=== PATIENT | female | born 1950 | race Caucasian/White ===

== ENCOUNTER 2020-01-28 00:37 | Observation (INO) | payer MEDICARE, OTHER, SELFPAY ==
[2020-01-28] VITALS (14 sets, daily range): BP systolic 121–174; BP diastolic 64–87; PULSE 60–90; RESP 16–20; TEMP 36.5–36.9; O2SAT 90–94; BMI 33.0
--- NOTE | 2020-01-28 00:51 | ED_ITS ---
HPI - Dizziness General: Chief Complaint: Dizziness Stated Complaint: r/o stroke Source: patient Mode of arrival: ambulatory Limitations: no limitations History of Present Illness: HPI Narrative: Zehra is a nice 69-year-old female who comes in from [facility]'s emergency department with report of dizziness. All of her notes, labs, CAT scans and findings from there were transferred with her and scanned into this chart so please review those. Patient was felt to have a TIA and they wanted to perform an MRI so she was referred here. Zehra tells me that she woke up at 8 AM with dizziness which she describes as not being able to focus and being severely off balance when she tries to walk. She denies any exacerbation to me when she moves her head in bed although when I asked her to perform it here she said it does exacerbate it mildly but she has persistent dizziness even at rest. The patient states the symptoms have waxed and waned but have been present all day. The last time she know she was okay was at 10 PM when she went to sleep the night before. Patient does not really complain of progressive symptoms but her symptoms are no better and they are present constantly. She states her symptoms are only mildly made worse by movement in bed but when she gets up and tries to walk she is terribly dizzy and has a difficult time walking at all on her own. Associated symptoms: Denies change in hearing, chest pain, chills, diaphoresis, ear discharge, headache(s), malaise, nausea, palpitations, syncope or vomiting Associated neuro symptoms: Deny confusion or numbness in extremities Review of Systems Const: Denies: fever(s), chills, body aches, fatigue, malaise or diaphoresis Eyes: Denies: change in vision, blurry vision, photophobia, eye discomfort, eye discharge, eye redness or yellow eyes ENMT: Denies: throat pain, odynophagia, hoarseness, swelling of lips/tongue, ear or mastoid pain, ear discharge, change in hearing or nasal discharge Card: Denies: chest pain, palpitations, irregular heart rhythm, edema, lightheadedness, syncope, pre-syncope, dyspnea on exertion or orthopnea Resp: Denies: dyspnea, productive cough, non-productive cough, wheezing, hemoptysis or chest congestion GI: Denies: abdominal pain, nausea, vomiting, hematemesis, coffee ground e mesis, heartburn, diarrhea, constipation, GI cramping, hematochezia or melena : Denies: flank pain, dysuria, urinary frequency, urinary urgency or hematuria Musc: Denies: neck pain, back pain, extremity pain, extremity swelling, joint pain, joint swelling, joint redness, joint warmth or joint stiffness Skin/Breast: Denies: rash, pruritus, erythema, skin pain or skin tenderness Neuro: Reports: lack of coordination and dizziness; Denies: headache(s), numbness in extremities, weakness in extremities, sensory changes, difficulty walking, vertigo, confusion, Slurred speech present or seizure-like activity Waldemar/Lymph: Denies: easy bruising, easy bleeding, petechiae, purpura or enlarged lymph nodes All/Imm: Denies: urticaria, throat swelling, tongue swelling, facial swelling or acute wheezing Physical Exam Const: COMMON NORMALS: no acute distress, patient oriented x3, no limitations and alert GENERAL APPEARANCE: cooperative HENMT: COMMON NORMALS: normocephalic, atraumatic, external ears normal, EAC's normal and Normal external nose present HEAD & SCALP: normal to inspection, normocephalic and atraumatic FACE & SINUS: normal facial exam and face symmetric NOSE: Normal external nose present and Normal nares present EXTERNAL EAR: Yes external ears normal EXTERNAL AUDITORY CANAL: EAC's normal MOUTH: Normal oral and palatal mucosa present, lip normal and tongue normal Eye: COMMON NORMALS: Equal, round and reactive pupils present and conjunctivae normal GENERAL EYE: appearance normal, both eyes and all related structures ALIGNMENT: Yes alignment normal PERIORBITAL: periorbital findings normal EYELID: eyelids normal CONJUNCTIVA: Yes conjunctivae normal SCLERA: sclerae normal PUPIL: Yes Equal, round and reactive pupils present Neck/C-Spine: COMMON NORMALS: full ROM, no lymphadenopathy, supple, no meningeal signs and no JVD GENERAL: Yes normal visual inspection and Yes trachea midline Chest: COMMONS NORMALS: normal inspection of the chest and normal palpation of entire chest wall Resp: COMMON NORMALS: normal respiratory effort, No retractions, No use of accessory muscles and clear to auscultation bilaterally EFFORT & INSPECTION: Yes able to speak in complete sentences and Yes symmetric chest movement AUSCULTATION: clear to auscultation bilaterally, no crackles, no rales, no rhonchi and no wheezes Cardio: COMMON NORMALS: no JVD, regular rate, regular rhythm, S1 normal heart sound present and S2 normal heart sound present RATE: regular rate RHYTHM: regular rhythm HEART SOUNDS: S1 normal heart sound present, S2 normal heart sound present, no click, no gallops, no murmurs and no rubs GI: COMMON NORMALS: Soft to palpation and No hepatosplenomegaly present PALPATION: Yes Soft to palpation, No Tenderness to palpation present (GI), No Guarding due to palpation present (GI), No Rigid due to palpation, Yes No hepatosplenomegaly present, No Hernia present, No Palpable mass present and No Pulsatile mass present : COMMON NORMALS: Yes no CVA tenderness BLADDER/KIDNEY EXAM: Yes no CVA tenderness EXTERNAL FEMALE EXAM: No Hernia present Back/Pelvis: COMMON NORMALS: no CVA tenderness, thoracic and lumbar spine normal to inspection, no thoracic nor lumbar tenderness and thoraco-lumbar ROM normal Extremity: COMMON NORMALS: normal to inspection, full ROM, capillary refill normal, no joint enlargement, no clubbing, cyanosis or edema and no calf tenderness Neuro: COMMON NORMALS: patient oriented x3, CN's II-XII intact bilaterally, moves all extremities, no focal motor deficits and no sensory deficits noted SENSORIUM/ORIENTATION: Yes alert MENINGEAL SIGNS: Yes no meningeal signs SPEECH: speech normal Psych: COMMON NORMALS: mental status grossly normal, Normal thought process present, cooperative, normal affect, speech normal and activity/motor behavior normal SPEECH: Yes normal speech THOUGHT PROCESS: Normal thought process present Skin: COMMON NORMALS: no rashes or lesions noted, turgor normal, no jaundice, no petechiae and no mottling GENERAL SKIN EXAM: no rashes or lesions noted and turgor normal Course Vital Signs: Vital signs: Vital Signs Temperature 97.7 F 01/28/20 00:37 Pulse Rate 65 01/28/20 02:15 Respiratory Rate 18 01/28/20 02:15 Blood Pressure 165/83 01/28/20 02:15 Pulse Oximetry 94 01/28/20 02:15 MDM - Dizziness MDM Narrative: Medical decision making narrative: Patient had negative CTs at [facility]. I did review this case in full with Dr. Gale, on-call for stroke neurology at [facility]. He agrees based upon constant dizziness this lasted this long that is not precipitated by head movement that resolves with time the patient more of a central cause of her dizziness than peripheral. Not impossible for this to be labyrinthitis or nasal cranial nerve problem but with her blood pressure being elevated and the symptoms she should have an MRI to definitively rule out cerebellar stroke. Patient agrees to come into the hospital. As the patient does have an NIH of 2 she is low enough that she does not need an emergent MRI as intervention is now out of the window secondary to time. I have endorsed the case to Dr. Caban who agrees to admit for further evaluation and care. 

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
--- NOTE | 2020-01-28 02:55 | MRR_ITS ---
PROCEDURE INFORMATION: Exam: MR Head Without Contrast Exam date and time: 01/28/2020 2:04 PM Age: 69 years old Clinical indication: Dizziness; Additional info: TIA TECHNIQUE: Imaging protocol: MR of the head without contrast. COMPARISON: No relevant prior studies available. FINDINGS: Brain: There is mild volume loss and mild periventricular and subcortical T2/FLAIR bright signal intensity compatible with small vessel disease changes.. No acute infarct. No hemorrhage. No significant white matter disease. No edema. Cerebral ventricles: Normal. No ventriculomegaly. Bones/joints: Unremarkable. Paranasal sinuses: Normal as visualized. No acute sinusitis. Mastoid air cells: The right mastoid air cells are clear. There is trace opacity in the left mastoid air cells. Orbits: Unremarkable. Soft tissues: Unremarkable. MR/MR head wo con* [id number] IMPRESSION: No acute findings.
[2020-01-28] MEDS: enoxaparin 40 mg/0.4 mL Syringe SUBCUT (03:57)
[2020-01-28 05:36] LABS: Basophils # 0.1 10^3/uL (0.0-0.1); Basophils % 1.6 %; Eosinophils # 0.2 10^3/uL (0.0-0.8); Hematocrit 35.6 % (37.0-47.0); Hemoglobin 11.5 g/dL (11.5-15.3); Lymphocytes % 35.3 %; Mean Corpuscular HGB Conc 32.3 g/dL (30.0-36.0); Mean Corpuscular Hemoglobin 30.1 pg (28.0-34.0); Mean Corpuscular Volume 93.2 fL (81-99); Mean Platelet Volume 10.1 fL (7.4-10.4); Monocytes # 0.5 10^3/uL (0.2-0.9); Monocytes % 8.3 %; Neutrophils # 2.81 10^3/uL (1.8-7.7); Neutrophils % 50.6 %; Nucleated Red Blood Cells % 0 %; Platelet Count 222 10^3/cmm (130-400); Red Blood Count 3.82 10^6/uL (4.1-5.3); Red Cell Distribution Width 13.3 % (12.1-15.1); White Blood Count 5.6 10^3/uL (4.0-10.0)
[2020-01-28 06:00] LABS: Anion Gap 12.3 (5-19); Blood Urea Nitrogen 19 mg/dL (8-23); Calcium 9.5 mg/dL (8.5-10.5); Carbon Dioxide 25 mmol/L (22-29); Chloride 105 mmol/L (98-107); Creatinine Clr Calc Pharmacy 53.8916; Glucose 90 mg/dL (65-115); Osmolality Calculated 288 mOsm/kg (285-295); Potassium 4.3 mmol/L (3.5-5.1); Sodium 138 mmol/L (136-145)
--- NOTE | 2020-01-28 08:38 | ECG_ITS ---
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 Measurements Intervals [place] Rate: 66 P: 53 WI: 193 QRS: -33 QRSD: 89 T: 69 QT: 388 QTc: 406 Interpretive Statements SINUS RHYTHM MARKED LEFT AXIS DEVIATION [QRS AXIS < -30] SEPTAL MYOCARDIAL INFARCTION [40+ ms Q WAVE IN V1/V2], PROBABLY OLD No previous ECG available for comparison Electronically Signed On 01-28-2020 22:02:02 MASTER MERCHANDISER by Pauly Mayorga M.D. [id number]
--- NOTE | 2020-01-28 08:38 | XRR_ITS ---
PROCEDURE INFORMATION: Exam: XR Chest, 1 View Exam date and time: 01/28/2020 10:11 AM Age: 69 years old Clinical indication: Shortness of breath; Additional info: SOB TECHNIQUE: Imaging protocol: XR of the chest Views: 1 view. COMPARISON: No relevant prior studies available. FINDINGS: Lungs: Unremarkable. No consolidation. Pleural space: Unremarkable. No pleural effusion. No pneumothorax. Heart/Mediastinum: Unremarkable. No cardiomegaly. Bones/joints: Unremarkable. XR/XR chest 1V portable [id number] IMPRESSION: No acute findings.
[2020-01-28] MEDS: aspirin 81 mg EC Tablet PO (09:00)
[2020-01-28] MEDS: clopidogrel 75 mg Tablet PO (09:00)
--- NOTE | 2020-01-28 11:06 | USR_ITS ---
PROCEDURE INFORMATION: Exam: US Duplex Bilateral Extracranial Arteries Exam date and time: 01/28/2020 3:45 PM Age: 69 years old Clinical indication: Dizziness; Additional info: CVA symptoms TECHNIQUE: Imaging protocol: Real-time Duplex ultrasound scan of the bilateral carotid and vertebral arteries combining riggs scale, color Doppler and spectral waveform analysis. Bilateral exam. COMPARISON: MR head jaquelin con* [id number] 01/28/2020 2:17 PM FINDINGS: Right common carotid artery: There is a small amount of subocclusive plaque at the right carotid bulb. No occlusion or stenosis. Waveforms are normal. Right internal carotid artery: Elevated flow velocities are noted within the right internal carotid artery specially the mid right internal carotid artery measuring 131.5 centimeter/second. Subocclusive heterogeneous plaque is noted in the proximal and mid right internal carotid artery resulting in mild narrowing of the lumen. Right ICA/CCA ratio: Abnormal measuring 1.5. Right external carotid artery: No stenosis in the origin. Right vertebral artery: Unremarkable. Antegrade flow. Left common carotid artery: Mildly elevated velocity distal left common carotid artery at 125.8 centimeter/second. Small eccentric heterogeneous subocclusive plaque is noted. Left internal carotid artery: Elevated flow velocity in the distal left internal carotid artery at 111.7 centimeter/second. Heterogeneous plaque is noted. Left ICA/CCA ratio: Within normal limits. 0.89 Left external carotid artery: No stenosis in the origin. Left vertebral artery: Unremarkable. Antegrade flow. Other: Elevated flow velocity in the right subclavian artery at 231.2 centimeter/second compared to the left which is 77.4 centimeter/second. US/CV carotid duplex BI* [id number] IMPRESSION: 1. There is stenosis of the right mid internal carotid artery measuring 50-69%. 2. There is mild stenosis of the left common carotid artery measuring 50-69% and less than 50% stenosis of the left internal carotid artery. 3. Incidental asymmetric flow velocities in the subclavian arteries with elevated flow velocity in the right subclavian artery. REFERENCES: SRU CRITERIA. The degree of internal carotid artery stenosis is based on criteria defined by the Society of Radiologists in Ultrasound (SRU). Normal is no stenosis. Mild is less than 50% stenosis. Moderate is 50-69% stenosis. Severe is greater than 69% stenosis to near occlusion. Near occlusion is a markedly narrowed lumen. Total occlusion is no detectable patent lumen.
--- NOTE | 2020-01-28 11:06 | USCV_ITS ---
Zehra Roberson Age: 69 Gender: F : 1950 Exam Date: 01/28/2020 15:33 Ordering Phys: Gael Vasquez MD Technologist: Soni Scherer [place] [facility] [place]: CVA symptoms BP: / HR: 66 Rhythm: Sinus Technical Quality: Adequate MEASUREMENTS (Male / Female) Normal Values 2D ECHO LV Diastolic Diameter PLAX 3.6 cm 4.2 - 5.9 / 3.9 - 5.3 cm LV Systolic Diameter PLAX 2.7 cm IVS Diastolic Thickness 1.4 cm 0.6 - 1.0 / 0.6 - 0.9 cm IVS Systolic Thickness 1.8 cm LVPW Diastolic Thickness 1.2 cm 0.6 - 1.0 / 0.6 - 0.9 cm LVPW Systolic Thickness 1.2 cm LVOT Diameter 2.0 cm LV Ejection Fraction 2D Teich 52.2 % LA Diameter 3.1 cm LA Width 1.6 cm LA Height 4.3 cm RA Width 3.1 cm RA Height 3.8 cm Aorta at Sinotubular Diameter 3.4 cm M-MODE LV Diastolic Diameter MM 4.6 cm 4.2 - 5.9 / 3.9 - 5.3 cm LV Systolic Diameter MM 2.1 cm LV Ejection Fraction MM Teich 84.0 % IVS Diastolic Thickness MM 1.0 cm 0.6 - 1.0 / 0.6 - 0.9 cm IVS Systolic Thickness MM 1.5 cm LVPW Diastolic Thickness MM 1.0 cm 0.6 - 1.0 / 0.6 - 0.9 cm LVPW Systolic Thickness MM 1.4 cm Aortic Annulus Diameter 3.2 cm LA Ao Ratio MM 1.0 MV E Point Septal Separation 0.3 cm DOPPLER AV Peak Velocity 153.0 cm/s LVOT Peak Velocity 118.0 cm/s AV Area Cont Eq vti 2.6 cm squared AV Area Cont Eq pk 2.5 cm squared MV Peak Velocity 150.0 cm/s MV Area PHT 2.7 cm squared Mitral E to A Ratio 0.9 MV E' Velocity 60.0 cm/s Mitral E to MV E' Ratio 15.7 Mitral E to LV E' Lateral Ratio 15.7 Mitral E to LV E' Septal Ratio 15.7 TR Peak Velocity 98.0 cm/s TR Peak Gradient 3.8 mmHg Right Atrial Pressure 3.0 mmHg Pulmonary Artery Systolic Pressu 6.8 mmHg PV Peak Velocity 95.0 cm/s RV Acceleration Time 0.1 s RV Ejection Time 0.3 s RV AcT/ET 0.3 FINDINGS Left Ventricle Normal left ventricular size, systolic function and wall thickness, with no regional wall motion abnormalities. Left ventricular ejection fraction is estimated at 65 %. Grade II diastolic dysfunction, moderately elevated filling pressures. Right Ventricle Normal right ventricular size and systolic function. Right ventricular systolic pressure 6.8 mmHg. Right Atrium Normal right atrial size. Right atrial pressure estimated at 3 mm Hg. Left Atrium Normal left atrial size. Mitral Valve Structurally normal mitral valve. No mitral valve stenosis. Trace mitral valve regurgitation. Aortic Valve Structurally normal trileaflet aortic valve. No aortic valve stenosis. No aortic valve regurgitation. Tricuspid Valve Structurally normal tricuspid valve. No tricuspid valve stenosis. Trace tricuspid valve regurgitation. Pulmonic Valve Pulmonic valve not well visualized. No pulmonary valve stenosis. Trace pulmonary valve regurgitation. Pericardium No pericardial effusion. Aorta Normal size aortic root and proximal ascending aorta. Normal sized inferior vena cava. CONCLUSIONS 1. Normal left ventricular size, systolic function and wall thickness, with no regional wall motion abnormalities. Left ventricular ejection fraction is estimated at 65 %. Grade II diastolic dysfunction, moderately elevated filling pressures. 2. Normal right ventricular size and systolic function. 3. No significant valvular abnormality. 4. No pericardial effusion. 5. No prior similar studies to compare. Pauly Mayorga MD (Electronically Signed) Final Date: 28 January 2020 21:11 S
--- NOTE | 2020-01-28 12:10 | PM.PN ---
Subjective Subjective: Interval history: Patient currently denies any fresh episode of dizziness. She has been able to walk to the bathroom, without any similar complaints. She was complaining of runny nose in the last few days which has now improved, she denies any, hearing loss, ringing in ear, chest pain, any weakness in any body, any visual disturbances, ear pain ear discharge. She has remained afebrile, vitals have been stable. Medications: Reviewed: Yes Vitals/I&O/Wt Last Vital Signs Temp 98.2 F 01/28/20 08:00 Pulse 69 01/28/20 08:00 Resp 20 H 01/28/20 08:00 BP 136/72 01/28/20 08:00 Pulse Ox 90 01/28/20 08:00 01/27/20 01/28/20 01/28/20 22:59 06:59 14:59 Intake Total 480 / 480 Output Total 300 / 300 Balance 180 / 180 Weight last 48 hrs Weight 92.986 kg Physical Exam Const: COMMON NORMALS: patient oriented x3 HENMT: COMMON NORMALS: normocephalic, atraumatic, hearing grossly normal bilaterally and external ears normal HEAD & SCALP: normocephalic and atraumatic EXTERNAL EAR: Yes external ears normal Eye: GENERAL EYE: appearance normal, both eyes and all related structures Chest: COMMONS NORMALS: normal inspection of the chest and normal palpation of entire chest wall CHEST: Yes Symmetrical chest wall rise Resp: COMMON NORMALS: normal respiratory effort, No retractions, No use of accessory muscles and clear to auscultation bilaterally EFFORT & INSPECTION: Yes symmetric chest movement AUSCULTATION: clear to auscultation bilaterally Cardio: COMMON NORMALS: regular rate, regular rhythm, S1 normal heart sound present, S2 normal heart sound present, No gallops present (Cardio), No murmurs present (Cardio), No rub (Cardio) and Peripheral pulses 2+ throughout RATE: regular rate RHYTHM: regular rhythm HEART SOUNDS: S1 normal heart sound present and S2 normal heart sound present PERIPHERAL PULSES: Peripheral pulses 2+ throughout GI: COMMON NORMALS: Normal to inspection, nondistended, normoactive bowel sounds present, Soft to palpation, non-tender, No hepatosplenomegaly present and no masses AUSCULTATION: Yes normoactive bowel sounds PALPATION: Yes Soft to palpation and Yes No hepatosplenomegaly present RECTAL EXAM: deferred Extremity: COMMON NORMALS: no clubbing, cyanosis or edema and no pedal edema Neuro: COMMON NORMALS: patient oriented x3 Data : 01/28/20 05:05 01/28/20 05:05 A&P Assessment and plan (1) TIA (transient ischemic attack): Status: Acute (2) Dizziness: Status: Acute Additional A&P Information TIA: Patient admitted with symptoms of dizziness started around 8 AM in the morning and persisted till afternoon. On arrival patient was not a candidate for TPA given the time interval. So far stroke work-up: Has been negative: CT head and CTA head and neck: Is unremarkable, MRI brain with and without contrast is pending. Carotid Doppler pending, 2D echo pending, awaiting telemetry monitoring. EKG : SINUS RHYTHM. MARKED LEFT AXIS DEVIATION. Continue aspirin 81 mg oral daily Continue Plavix 75 mg orally Continue atorvastatin 80 mg oral daily Continue meclizine 25 mg p.o. 3 times daily PRN Physical therapy on board. Nicotine dependence: Patient is not contemplating to quit smoking at this point, counseling provided Hypertension: Allow permissive hypertension for now DVT prophylaxis Lovenox Cardiac diet Full code Disposition: Anticipated discharge tomorrow in the morning to home. Attestations Medical Necessity Statement*: Continues to be in hospital for management of TIA. Coding Level of Care Code Acute Staff Development Coordinator for Kesha Fernandez Diagnoses TIA (transient ischemic attack) G45.9 Dizziness R42
--- NOTE | 2020-01-28 12:59 | PC.CHAP ---
Pastoral Care Encounter/Spiritual Assessment Type of Contact [] Declined therapy assistant visit [] Patient/Family/Request visit [] Outpatient visit [] Follow-up visit [] Physician referral [] Code/Alert [X] Routine visit [] Staff referral [] Actively dying [] Patient sleeping [] Family support [] [] Out of room [] Palliative care [] [] Receiving care in room [] Pre-surgical visit [] Trauma [] Long length of stay [] ICU visit [] Other: Relational/Emotional Strength [X] Patient feels connected with others/family/visitors/staff [] Distress [] Loneliness/isolation [] Abandonment Spirituality of Patient [X] Person of Melani [X] Attends Buddhist of their Melani [X] Believes in Prayer [X] Reads Bible or Lutheran materials [] There are Spiritual issues to be addressed 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 [X] Prayer [X] Active listening [X] Non-anxious presence [] Spiritual/emotional support [] Crisis/trauma care [] Spiritual counseling [] Bereavement support [] Provided bereavement packet [X] Provided Bible/devotional materials [] Provided toy/stuffed animal, coloring book to patient or family member [] Provided Communion [] Anointing/Boaz [] Salvation [X] Completed spiritual assessment [] Other: Impact on Illness or Injury [] Angry [] Fearful [] Anxious [] Often cries [] Exhaustion [] Unable to work [] Unable to attend restorationism [] Unable to walk/stand [] Unable to read [] Unable to drive [] Unable to eat/drink [] Unable to sleep [] Unable to be with family [] Patient intubated [] Other: Summary: Pt doing quite well; alert and able to communicate. She is waiting on tests (and answers) as to what may be going on. She is connected to her family and orthodoxy family in [place]. Daily Bread provided; she requested a Bible but said that she wouldn't be able to focus on it today. I placed her name on Follow-up for someone to take her a Bible on Thursday/Thursday. Time spent with patient: 7-10 mins
[2020-01-28] MEDS: atorvastatin 40 mg Tablet 80 MG PO (20:18)
[2020-01-29] VITALS: BP 126/68; PULSE 72; PULSE 87; RESP 18; TEMP 37; O2SAT 94
--- NOTE | 2020-01-29 01:27 | PC.NURSE ---
ORTHOSTATIC BLOOD PRESSURE: Pt. refused ortho vitals at 0000 rounds stating they were all within normal range before. Staff nurse notified.
[2020-01-29] MEDS: enoxaparin 40 mg/0.4 mL Syringe SUBCUT (03:56)
[2020-01-29 04:00] VITALS: BP 134/76; PULSE 75; RESP 17; TEMP 36.8; O2SAT 94
[2020-01-29 05:34] LABS: Basophils # 0.1 10^3/uL (0.0-0.1); Basophils % 1.4 %; Eosinophils # 0.2 10^3/uL (0.0-0.8); Eosinophils % 3.2 %; Hematocrit 37.7 % (37.0-47.0); Lymphocytes % 33.4 %; Mean Corpuscular HGB Conc 31.8 g/dL (30.0-36.0); Mean Corpuscular Hemoglobin 30.3 pg (28.0-34.0); Mean Corpuscular Volume 95.2 fL (81-99); Mean Platelet Volume 10.3 fL (7.4-10.4); Monocytes # 0.6 10^3/uL (0.2-0.9); Monocytes % 10.2 %; Neutrophils # 3.04 10^3/uL (1.8-7.7); Neutrophils % 51.6 %; Nucleated Red Blood Cells % 0 %; Platelet Count 220 10^3/cmm (130-400); Red Blood Count 3.96 10^6/uL (4.1-5.3); Red Cell Distribution Width 13.3 % (12.1-15.1); White Blood Count 5.9 10^3/uL (4.0-10.0)
[2020-01-29 05:58] LABS: Blood Urea Nitrogen 23 mg/dL (8-23); Calcium 9.5 mg/dL (8.5-10.5); Carbon Dioxide 24 mmol/L (22-29); Chloride 103 mmol/L (98-107); Glucose 94 mg/dL (65-115); Osmolality Calculated 287 mOsm/kg (285-295); Sodium 137 mmol/L (136-145)
--- NOTE | 2020-01-29 06:10 | PC.NURSE ---
ORTHOSTATIC BLOOD PRESSURE: Pt. refused ortho blood pressures at 0400 rounding. staff nurse notified.
--- NOTE | 2020-01-29 06:12 | PC.NURSE ---
ORTHOSTATIC BLOOD PRESSURE: Pt. refused ortho blood pressures at 0400 rounding. Staff nurse notified.
--- NOTE | 2020-01-29 06:14 | PC.NURSE ---
ORTHOSTATIC BLOOD PRESSURE: Pt. refused ortho blood pressures at 0400 rounding. Staff nurse notified.
[2020-01-29 08:00] VITALS: BP 126/74; BP 130/70; BP 131/71; PULSE 70; PULSE 71; RESP 18; TEMP 36.7; O2SAT 90
[2020-01-29] MEDS: clopidogrel 75 mg Tablet PO (08:35)
[2020-01-29] MEDS: aspirin 81 mg EC Tablet PO (08:35)
[2020-01-29 10:52] LABS: SARS Covid-2 Antigen Negative (Negative)
--- NOTE | 2020-01-29 11:36 | PM.DCS ---
Discharge Providers Date of Admission: 01/28/20 01:43 Date of Discharge: January 29, 2020 Attending Provider at Admission: Juan Draper MD Attending Provider at Discharge: Gael Vasquez MD Diagnoses at Discharge Discharge Diagnosis (1) TIA (transient ischemic attack): Status: Resolved (2) Dizziness: Status: Resolved Reason for Visit Reason for Visit: r/o stroke Hospital Course Hospital Course 69 year old female no significant past medical history of HTN was admitted with chief complaint of dizziness.Patient woke up on 01/27 with a feeling of dizziness and went to [place] [facility] with her complaints where she had CT head which was unremarkable CT head and neck unremarkable, patient kept complaining of dizziness which she described as lightheadedness, she was not experiencing spinning of her surroundings,or spinning of her head.No recent fever diarrhea chest pain, shortness of breath weakness of upper or lower extremities, falls at home, ringing in the ear, ear pain ear discharge, difficultly hearing,difficulty with vision.But she was having Runny nose for past few days.Patient was endorsing a lot of stress lately at home, she lives with her daughter. She smokes about 1-1/2 pack a day, no previous history of CA, coronary disease or stroke.Because of her persistent symptoms she was sent to our facility for MRI of head. On arrival ER Physician discussed her case with stroke team who recommended MRI as well to r/o OSTEOPATHIC RESIDENT cause of Dizziness. During her hospital stay, she was worked up completely for dizziness. MRI of the head without contrast. Failed to show any acute findings. CV carotid duplex BI: 1. There is stenosis of the right mid internal carotid artery measuring 50-69%. There is mild stenosis of the left common carotid artery measuring 50-69% and less than 50% stenosis of the left internal carotid artery.Incidental asymmetric flow velocities in the subclavian arteries with elevated flow velocity in the right subclavian artery. CV echo complete: Normal left ventricular size, systolic function and wall thickness, with no regional wall motion abnormalities. Left ventricular ejection fraction is estimated at 65 %. Grade II diastolic dysfunction, moderately elevated filling pressures. Normal right ventricular size and systolic function. No significant valvular abnormality. No pericardial effusion. EKG: SINUS RHYTHM. MARKED LEFT AXIS DEVIATION. Rate 66, SD interval: 193, QRS duration: 89 , corrected QTC 406. Telemetry monitoring was unremarkable. Orthostatic vital signs are negative. She was was managed for possible TIA versus respiratory cause of dizziness. Rapid COVID Test was negative. Patient was discharged in stable condition to home.She will continue to follow her PCP as outpatient. Physical Exam Const: COMMON NORMALS: patient oriented x3 HENMT: COMMON NORMALS: normocephalic HEAD & SCALP: normocephalic Chest: COMMONS NORMALS: normal inspection of the chest CHEST: Yes Symmetrical chest wall rise Resp: COMMON NORMALS: normal respiratory effort and clear to auscultation bilaterally EFFORT & INSPECTION: Yes symmetric chest movement AUSCULTATION: clear to auscultation bilaterally Cardio: COMMON NORMALS: regular rate, regular rhythm, S1 normal heart sound present, S2 normal heart sound present, No gallops present (Cardio), No murmurs present (Cardio), No rub (Cardio) and Peripheral pulses 2+ throughout RATE: regular rate RHYTHM: regular rhythm HEART SOUNDS: S1 normal heart sound present and S2 normal heart sound present PERIPHERAL PULSES: Peripheral pulses 2+ throughout GI: COMMON NORMALS: Normal to inspection, nondistended, normoactive bowel sounds present, Soft to palpation, non-tender, No hepatosplenomegaly present and no masses AUSCULTATION: Yes normoactive bowel sounds PALPATION: Yes Soft to palpation and Yes No hepatosplenomegaly present RECTAL EXAM: deferred Extremity: COMMON NORMALS: no clubbing, cyanosis or edema and no pedal edema Neuro: COMMON NORMALS: patient oriented x3 Discharge Data Data Completed and Pending: Completed Studies During Hospitalization Category Date Time Status XR chest 1V joyce ble [id number] Routine Exams 01/28/20 08:38 Completed MR head wo con* [id number] Routine MRI 01/28/20 02:55 Completed CV carotid duplex BI* [id number] Stat Ultrasound 01/28/20 11:06 Completed CV echo complete* [id number] Stat Ultrasound 01/28/20 11:06 Completed Labs from last 24 hours 01/29/20 01/29/20 01/29/20 10:10 04:27 04:27 WBC 5.9 RBC 3.96 L Hgb 12.0 Hct 37.7 MCV 95.2 MCH 30.3 MCHC 31.8 RDW 13.3 Plt Count 220 MPV 10.3 Neut % (Auto) 51.6 Lymph % (Auto) 33.4 Grainger % (Auto) 10.2 Eos % (Auto) 3.2 Baso % (Auto) 1.4 Neut # (Auto) 3.04 Lymph # (Auto) 2.0 Grainger # (Auto) 0.6 Eos # (Auto) 0.2 Baso # (Auto) 0.1 Nucleated RBC % (a uto) 0 Nucleated RBCs # 0.0 Sodium 137 Potassium 4.0 Chloride 103 Carbon Dioxide 24 Anion Gap 14.0 BUN 23 Creatinine 0.9 GFR Calculation Not Reportable Glucose 94 Calculated Osmolal ity 287 Calcium 9.5 SARS-CoV-2 Ag (Rap id) Negative Vitals: Last Vital Signs Temp 98.0 F 01/29/20 08:00 Pulse 70 01/29/20 08:00 Resp 18 01/29/20 08:00 BP 131/71 01/29/20 08:00 Pulse Ox 90 01/29/20 08:00 Discharge Plan Discharge Patient Disposition: Home Condition: Stable Prescriptions: New atorvastatin 10 mg tablet 10 mg PO DAILY Qty: 30 RF: 0 Continued cetirizine 10 mg Tablet 10 mg PO DAILY RF: 0 potassium chloride [Klor-Con M20] 20 mEq tablet,ER particles/crystals 10 meq PO DAILY@0800 PRN (Reason: Muscle Pain) RF: 0 pantoprazole 40 mg tablet,delayed release (DR/EC) 40 mg PO DAILY@0800 RF: 0 Benadryl Allergy 25 mg Tablet 25 mg PO Q6H PRN (Reason: Nasal Congestion) RF: 0 albuterol sulfate 90 mcg/actuation HFA aerosol inhaler 1 inh INHALATION PRN PRN (Reason: Shortness Of Breath) RF: 0 losartan 100 mg tablet 100 mg PO DAILY@0800 RF: 0 fluticasone propionate 50 mcg/actuation spray,suspension 50 mcg INTRANASAL DAILY RF: 0 Probiotic 3 billion cell Capsule 4,000 mmu cells PO DAILY RF: 0 ibuprofen 800 mg Tablet 800 mg PO Q6H PRN (Reason: Pain) RF: 0 aspirin 325 mg Tablet 325 mg PO DAILY RF: 0 Discharge Orders: Discharge Order (Routine); Ordered 01/29/20 Ordered By: Gael Vasquez Referrals: Leeanne Miller FNP [Referring] - 4-7 days (Please contact Leeanne Miller office tomorrow 01/30/20 to make an appointment to be seen within 4-7 days for hospital follow up. ) Discharge Diet: Low Salt Discharge Activity: Resume usual activity Patient Instructions: Dizziness, Atorvastatin (By mouth), Low Sodium Diet, Transient Ischemic Attack (DC) Discharge Attestations Time Spent in Discharge Care*: greater than 30 min Specific Discharge Activities: educating patient, discussing with porter sample case/social workers/dc planners, documenting/other paperwork and evaluating patient/reviewing data Time Spent in Smoking Cessation: 3 to 10 minutes Status at Discharge: Cognitive status at discharge: cognitively intact, Behavioral status at discharge: cooperative, Functional status at discharge: independent ambulation Overall status at discharge: patient is back to baseline Quality Metrics Clinical Quality Measures During this hospital stay, did patient experience: None Coding Level of Care Code Acute Biodiesel Process Control Technician for Kesha Fwaren Diagnoses TIA (transient ischemic attack) G45.9 Dizziness R42
[2020-01-29 12:00] VITALS: BP 172/75; PULSE 82; RESP 20; TEMP 37.1; O2SAT 94
[2020-01-29 13:32] VITALS: BP 172/75; PULSE 82; RESP 20; TEMP 37.1; O2SAT 94
--- NOTE | 2020-01-31 13:48 | PC.RESP ---
SMOKING CESSATION INFORMATION SENT TO PATIENT.
== END 2020-01-29 13:33 | disposition home or self-care (01) ==
LOC: ER 01:14 → MEDSURG 02:12
PROVIDERS: Admitting Provider Internal Medicine; Emergency Provider Emergency Medicine; Visit Provider Internal Medicine
DX: I65.21 Occlusion and stenosis of right carotid artery (principal); R42 Dizziness and giddiness; Z91.81 History of falling; Z85.038 Personal history of other malignant neoplasm of large intestine; E78.5 Hyperlipidemia, unspecified; I10 Essential (primary) hypertension; Z82.49 Family history of ischemic heart disease and other diseases of the circulatory system; Z90.49 Acquired absence of other specified parts of digestive tract; Z92.21 Personal history of antineoplastic chemotherapy
CPT/HCPCS: 12345; 36415; 70551; 71045; 80048; 85025; 87426; 93005; 93306; 93880; 96372; 97161; 99283; 99285; G0378; J1650

== ENCOUNTER 2021-10-21 06:58 | Day surgery (SDC) | payer MEDICARE, OTHER, SELFPAY ==
[2021-10-17 14:04] VITALS: BMI 27.9
[2021-10-21 07:18] VITALS: BP 159/85; PULSE 71; RESP 18; TEMP 36.9; O2SAT 97
[2021-10-21] MEDS: sodium chloride 0.9% 1,000 ML 30 ML IV (07:36)
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
[2021-10-21 09:25] VITALS: BP 133/71; PULSE 56; RESP 16; TEMP 36.5; O2SAT 100
[2021-10-21 09:38] VITALS: BP 151/72; PULSE 64; RESP 16; O2SAT 97
--- NOTE | 2021-10-21 11:05 | ANE.PACU2 ---
Inpatient post-anesthesia follow up: Airway intact: Yes Vital signs: Temperature 97.7 F Pulse Rate 64 Respiratory Rate 16 Blood Pressure 151/72 Pulse Oximetry 97 Oxygen Delivery Me thod Room Air Oxygen Flow Rate Fraction of Inspir ed Oxygen Hydration adequate: Yes Nausea and vomiting: No Pain level: 1 Mental status: Baseline
== END 2021-10-21 09:53 | disposition home or self-care (01) ==
PROVIDERS: PCP Nurse Practitioner Family; Visit Provider Internal Medicine
PROC: 0DJD8ZZ Inspection of Lower Intestinal Tract, Via Natural or Artificial Opening Endoscopic (ICD-10-PCS; CPT 45378; principal; 2021-10-21 08:30)
DX: Z12.11 Encounter for screening for malignant neoplasm of colon (principal); I10 Essential (primary) hypertension; E78.5 Hyperlipidemia, unspecified; G47.30 Sleep apnea, unspecified; F17.210 Nicotine dependence, cigarettes, uncomplicated; Z79.82 Long term (current) use of aspirin; Z86.73 Personal history of transient ischemic attack (TIA), and cerebral infarction without residual deficits; Z88.2 Allergy status to sulfonamides; Z88.5 Allergy status to narcotic agent; Z98.0 Intestinal bypass and anastomosis status
CPT/HCPCS: G0121; J2704; J7030